=== PATIENT | female | born 1945 | race Two or more races ===

== ENCOUNTER 2019-01-18 13:26 | Outpatient (CLI) | payer OTHER ==
[~2019-01-18 13:26] MED LIST: ASA81 MG; CEFTIN500 MG PO; COZAAR100 MG; LIPITOR20 MG; TROPOL
== END 2019-01-18 13:41 | disposition home or self-care (01) ==
LOC: RAD 501 13:26
DX: S90.111A Contusion of right great toe without damage to nail, initial encounter (principal); M79.671 Pain in right foot

== ENCOUNTER 2019-01-19 09:15 | Outpatient (CLI) | payer OTHER | END 2019-01-19 10:46 | disposition home or self-care (01) | LOC: RAD 09:15 | DX: M25.561 Pain in right knee (principal); M25.562 Pain in left knee ==

== ENCOUNTER 2019-01-21 10:08 | Outpatient (CLI) | payer OTHER | END 2019-01-21 14:38 | disposition home or self-care (01) | LOC: MRI 10:08 | DX: M25.561 Pain in right knee (principal) | CPT/HCPCS: 73721 ==

== ENCOUNTER 2020-07-10 06:14 | Outpatient (CLI) | payer OTHER | END 2020-07-10 07:32 | disposition home or self-care (01) | LOC: RAD 06:14 | DX: M25.511 Pain in right shoulder (principal); M25.521 Pain in right elbow; M79.631 Pain in right forearm; M25.531 Pain in right wrist; M79.641 Pain in right hand ==

== ENCOUNTER 2020-08-09 09:14 | Outpatient (CLI) | payer OTHER | END 2020-08-09 09:22 | disposition home or self-care (01) | LOC: SONOGRAMA 09:14 → MAMO-SONO 10:15 | PROVIDERS: ATTEND General Practice | DX: M75.81 Other shoulder lesions, right shoulder (principal); R60.0 Localized edema ==

== ENCOUNTER 2024-09-09 10:58 | Emergency (ER) | payer OTHER ==
[~2024-09-09] VITALS: Ht 160 cm; Wt 65.8 kg
[2024-09-09] MEDS ORDERED: SYNTHROID125 MCG (11:25)
[2024-09-09] MEDS ORDERED: DIPHENHYDRAMINE HCL 50 MG/ML VIAL 1ML IM ONE (11:45)
[2024-09-09] MEDS ORDERED: METHYLPREDNISOLONE SOD SUCC 40 MG VIAL IM ONE (11:45)
[2024-09-09 12:25] LABS: HEMATOCRIT 37.6 % (36.0-45.00); MEAN CELL VOLUME 87.7 fL (80.00-100.00); MEAN CORPUSCULAR HEMOGLOBIN 30.4 pg (27.00-32.0); MEAN CORPUSCULAR HGB CONC 34.6 g/dl (32.0-36.0); PLATELET COUNT 253 K/uL (150-450); RED BLOOD COUNT 4.29 M/uL (4.00-6.00)
[2024-09-09] MEDS ORDERED: MEDROLPACK PO (12:37)
[2024-09-09 14:46] VITALS: BP 107/60; O2SAT 96
== END 2024-09-09 14:47 | disposition home or self-care (01) ==
LOC: ER 11:00
PROVIDERS: General Practice
DX: R21 Rash and other nonspecific skin eruption (principal); E11.9 Type 2 diabetes mellitus without complications
CPT/HCPCS: 36415; 96372; 99282; J1200; J3490